=== PATIENT | female | born 1960 | race Caucasian/White ===

== ENCOUNTER → 2016-10-11 | Outpatient (CLI) | payer MEDICARE, MEDICAID ==
[~2016-10-11] MED LIST: ADVAIR DISK28 PUFFS IN; AUGMENTIN1 TA1 PO; CIPRO 500MG TA500 MG PO; DARVOCET-N 1001 EACH PO; DUONEB 3 MG/3 ML3 ML IH; K-DUR 2020 MEQ PO; LEVAQUIN500 MG PO; LISINOPRIL 20MG20 MG PO; LORTAB 5/500 501 TAB PO; PREDNISONE 20MG20 MG PO; TAMIFLU 75MG CA75 MG PO; TESSALON PERLE100 MG PO; TYLENOL W/CODEI1 TA2 PO; TYLOX PO; ULTRAM50 MG PO; VICODIN 5/500 T1 TAB PO
== END ==
LOC: LAB 09:13
DX: J44.9 Chronic obstructive pulmonary disease, unspecified (principal); R06.02 Shortness of breath; F17.210 Nicotine dependence, cigarettes, uncomplicated; E55.9 Vitamin D deficiency, unspecified

== ENCOUNTER → 2016-11-10 | Outpatient (CLI) | payer MEDICARE, MEDICAID ==
[2016-11-10 08:45] LABS: BUN 21 mg/dL (7-18)
[2016-11-10 08:55] LABS: GFR (ESTIMATED) 57 ML/MIN (59-)
[2016-11-10 08:57] LABS: HEMOGLOBIN 15.2 g/dL (12.2-16.2); LYMPH # 3.4 K/mm3 (0.7-4.5); LYMPH % 28.4 % (10-50.0)
--- NOTE | 2016-11-10 17:41 | RADIOLOGY REPORT PS360 ---
EXAM: CT LUNG LOW DOSE WO CONTRAST COMPARISON: None HISTORY: 56-year-old asymptomatic female with greater than 30 pack-year smoking history ORDERING PHYSICIAN: HOLLY GASCA MD PATIENT AGE: 56 years TECHNIQUE: The exam was performed on a GE Light Speed [address] scanner using 2.94 mGy CTDI. A low dose helical CT CHEST was performed on a multi-detector scanner The LDCT was performed in a facility that meets the criteria for the screening program. Data regarding this exam was submitted to [employer] which is an approved registry. The order for this exam indicates that it came as a result of a lung cancer screening counseling shard decision-making visit that included all the elements required of such a visit including smoking cessation. The radiologist interpreting this exam meets the [facility] criteria for the LDCT lung cancer screening program. The exam is reported using the Lung-RADS classification scale and reported to the [employer] registry. NOTE: This study was performed for the specific purposes of lung cancer screening and is not an alternative to diagnostic chest CT. RADIATION DOSE: CTDI vol(CT dose Index-volume) = 2.94mG DLP (Dose Length Product) = 101.75 mGcm FINDINGS: There is centrilobular emphysematous changes. There is a 12 mm cystic region in the right middle lobe. The margins are somewhat irregular. A 4 mm nodular opacity is present in the right lower lobe anteriorly and laterally. Calcified granulomas are present on the left. Small area of atelectasis or fibrosis is present in the lingula on the left. No effusions or infiltrates. IMPRESSION: 1. Lung RADS Category: 3, indeterminate regarding 12 mm cystic lesion in the right middle lobe with some irregularity of the margin of the lesion 2. Other findings: Centrilobular emphysematous change and old granulomatous disease. RECOMMENDATIONS: [address] chest without and with contrast
== END ==
LOC: RAD 08:09 → RT 10:00
PROVIDERS: Internal Medicine
DX: J44.9 Chronic obstructive pulmonary disease, unspecified (principal); R06.02 Shortness of breath; F17.210 Nicotine dependence, cigarettes, uncomplicated; Z87.891 Personal history of nicotine dependence; Z12.2 Encounter for screening for malignant neoplasm of respiratory organs
CPT/HCPCS: G0297